=== PATIENT | male | born 1950 | race Caucasian/White ===

== ENCOUNTER → 2018-06-04 | Day surgery (SDC) | payer OTHER ==
[~2018-06-04] VITALS: Ht 180.3 cm; Wt 81.6 kg
--- NOTE | 2018-06-04 14:34 | Operative Report ---
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 The risks, benefits, and alternatives to surgery were discussed at length with the patient. Informed consent was obtained. The patient was brought to the operating room where they were placed under sedation. A retrobulbar block was placed behind the right eye without complication. His bandage contact lens was removed. The eye was prepped and draped under normal sterile fashion a speculum was placed good exposure. A conjunctival peritomy was made using Kaylyn scissors and 0.12 forceps. Underlying Tenon's was excised to bare sclera. Hemostasis was achieved using eraser cautery. A scleral tunnel of approximately 4.25 mm in length was made using a crescent blade. Paracenteses were made using stab incision bleed. Cohesive viscoelastic was used to fill the anterior chamber. A central Descemet's membrane was scored and removed using reverse Sinskey hook. The posterior stroma was scraped and roughened. An inferior peripheral iridotomy was made using reverse Sinskey hook and cyclodialysis spatula. A temporary suture was placed in the main incision using 10-0 nylon suture. Attention was turned to the processed donor cornea. A donor graft was prepared using an 8.25 Mm vacuum punch. This was placed under Optisol. Attention was turned back to the patient were the suture was loosened and the viscoelastic was removed using coaxial irrigation and aspiration. Using a 60-40 taco fold insertion technique the graft was folded and inserted into the anterior chamber using forceps. The main wound was sutured and found to be watertight. The anterior chamber was reformed using balanced salt solution which also allowed the graft on full in its proper orientation. The graft was floated using a small air bubble and centered at which point a complete air fill was achieved in the anterior chamber. Residual interface fluid was massaged. The graft was allowed to remain in place for 10 minutes at superphysiologic pressure. After 10 minutes the eye was brought to physiologic pressure and left with an approximately 90% air-filled. Some conjunctival injections of cefuroxime and dexamethasone were placed. Dilating drops were placed. Speculum was removed. Maxitrol ointment was placed on the eye followed by patch and shield. The patient was brought to the recovery area with a remain faceup additional hour before being discharged. Instructions were given to the patient to follow-up the next day for routine postoperative care.
== END ==
LOC: STS 01:26
DX: H18.51 Endothelial corneal dystrophy (principal); H18.11 Bullous keratopathy, right eye; I10 Essential (primary) hypertension; K21.9 Gastro-esophageal reflux disease without esophagitis; G47.33 Obstructive sleep apnea (adult) (pediatric)
CPT/HCPCS: J1100; J2001; J2250; V2785